=== PATIENT | female | born 1995 | race African-American/Black ===

== ENCOUNTER 2019-11-28 17:28 | Emergency (ER) | payer SELFPAY ==
[~2019-11-28] VITALS: Ht 154.9 cm; Wt 65.9 kg
[2019-11-28 18:12] LABS: COLLECTION METHOD CLEAN CATCH
[2019-11-28 18:33] LABS: MUCOUS Present /lpf; PH 5 (5-8); SQUAMOUS EPITHELIAL 0-2 /hpf; URINE APPEARANCE Clear; URINE BACTERIA None Seen /hpf; URINE BILIRUBIN Negative (NEGATIVE); URINE BLOOD 2+ (NEGATIVE); URINE COLOR Yellow; URINE GLUCOSE Negative (NEGATIVE); URINE KETONE 2+ (NEGATIVE); URINE LEUKOCYTE ESTERASE Trace (NEGATIVE); URINE NITRATE Negative (NEGATIVE); URINE PROTEIN(semi-quant) Negative (NEGATIVE); URINE UROBILINOGEN Negative (NEGATIVE)
[2019-11-28] MEDS ORDERED: OMNICEF 300MG300 MG PO (18:58)
[2019-11-28 19:25] VITALS: BP 122/76; PULSE 71; TEMP 98.5
== END 2019-11-28 19:21 | disposition home or self-care (01) ==
LOC: COL.ER 17:28
PROVIDERS: Physician Assistant
DX: N39.0 Urinary tract infection, site not specified (principal)